=== PATIENT | female | born 1995 | race Two or more races ===

== ENCOUNTER 2019-04-01 10:31 | Emergency (ER) | payer SELFPAY ==
--- NOTE | 2019-04-01 10:39 | ER Report ---
History and Physical Time Seen By MD: 10:39 Hx. of Stated Complaint: THINKS SHE HAS A UTI. 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 Patient also reports that she had started taking Azo which was around the time that her urine change colors. Patient also admits to having a new partner with whom she does not use barrier contraception. Denies purulent vaginal discharge, bleeding however was concerned that she might possibly have a sexually transmitted infection. Patient was well-appearing at time of evaluation in no acute distress. Denies flank pains, fevers, chills. REVIEW OF SYSTEMS: Constitutional: No fever, no chills. Eyes: No discharge. ENT: No sore throat. Cardiovascular: No chest pain, no palpitations. Respiratory: No cough, no shortness of breath. Gastrointestinal: No abdominal pain, no vomiting. Genitourinary: No hematuria, + frequency, + urgency, + urine discoloration, no vaginal discharge Musculoskeletal: No back pain. Skin: No rashes. Neurological: No headache. Allergies: Coded Allergies: No Known Drug Allergies (Unverified , 04/01/19) Home Meds No Active Prescriptions or Reported Meds Constitutional Vital Sign - Last 24 Hours 04/01/19 10:35 Temp 97.7 Pulse 77 Resp 20 B/P (MAP) 110/67 Pulse Ox 94 O2 Delivery Room Air Physical Exam General Appearance: The patient is alert, has no immediate need for airway pr otection and no signs of toxicity. No acute distress Eyes: Pupils equal and round no pallor or injection. ENT, Mouth: Mucous membranes are moist. Respiratory: There are no retractions, lungs are clear to auscultation. Cardiovascular: Regular rate and rhythm. Gastrointestinal: Abdomen is soft and non tender, no masses, bowel sounds normal. Neurological: No focal neurological deficits Skin: Warm and dry, no rashes. Musculoskeletal: Neck is supple non tender. Extremities are nontender, nonswollen and have full range of motion. DIFFERENTIAL DIAGNOSIS: After history and physical exam differential diagnosis was considered for urinary tract infection, gonorrhea, chlamydia, trichomoniasis, bacterial vaginosis, ureterolithiasis Medical Decision Making Data Points Laboratory Hematology Test 04/01/19 10:34 Urine Color Yellow Urine Clarity Cloudy Urine pH 6.0 pH (4.8-9.5) Urine Specific [place] 1.026 Urine Protein 100 mg/dL (NEGATIVE) Urine Glucose (UA) Negative mg/dL (NEGATIVE) Urine Ketones Negative mg/dL (NEGATIVE) Urine Blood Small (NEGATIVE) Urine Nitrite Negative (NEGATIVE) Urine Bilirubin Negative (NEGATIVE) Urine Urobilinogen 0.2 mg/dL (0.2-1.9) Urine Leukocyte Esterase Moderate (NEGATIVE) Urine RBC 20 /HPF (0-2/HPF) Urine WBC 963 /HPF (0-5/HPF) Urine WBC Clumps Few /HPF Urine Squamous Epithelial Cells None /LPF (</=FEW) Urine Amorphous Crystals Few /HPF Urine Bacteria Negative /HPF (NONE-FEW) Urine Mucus Few /HPF (NONE-FEW) Chemistry Test 04/01/19 10:34 Urine Color Yellow Urine Clarity Cloudy Urine pH 6.0 pH (4.8-9.5) Urine Specific [place] 1.026 Urine Protein 100 mg/dL (NEGATIVE) Urine Glucose (UA) Negative mg/dL (NEGATIVE) Urine Ketones Negative mg/dL (NEGATIVE) Urine Blood Small (NEGATIVE) Urine Nitrite Negative (NEGATIVE) Urine Bilirubin Negative (NEGATIVE) Urine Urobilinogen 0.2 mg/dL (0.2-1.9) Urine Leukocyte Esterase Moderate (NEGATIVE) Urine RBC 20 /HPF (0-2/HPF) Urine WBC 963 /HPF (0-5/HPF) Urine WBC Clumps Few /HPF Urine Squamous Epithelial Cells None /LPF (</=FEW) Urine Amorphous Crystals Few /HPF Urine Bacteria Negative /HPF (NONE-FEW) Urine Mucus Few /HPF (NONE-FEW) Urinalysis Test 04/01/19 10:34 Urine Color Yellow Urine Clarity Cloudy Urine pH 6.0 pH (4.8-9.5) Urine Specific [place] 1.026 Urine Protein 100 mg/dL (NEGATIVE) Urine Glucose (UA) Negative mg/dL (NEGATIVE) Urine Ketones Negative mg/dL (NEGATIVE) Urine Blood Small (NEGATIVE) Urine Nitrite Negative (NEGATIVE) Urine Bilirubin Negative (NEGATIVE) Urine Urobilinogen 0.2 mg/dL (0.2-1.9) Urine Leukocyte Esterase Moderate (NEGATIVE) Urine RBC 20 /HPF (0-2/HPF) Urine WBC 963 /HPF (0-5/HPF) Urine WBC Clumps Few /HPF Urine Squamous Epithelial Cells None /LPF (</=FEW) Urine Amorphous Crystals Few /HPF Urine Bacteria Negative /HPF (NONE-FEW) Urine Mucus Few /HPF (NONE-FEW) ED Course/Re-evaluation ED Course Patient is a 23-year-old female here with complaints of urinary frequency, urgency, discoloration for approximately one week. Patient has been taking Azo without significant improvement but does note that her urine became discolored around the time when she started the Azo. Patient does report having a new sexual partner which also concerned her. Gonorrhea, chlamydia were sent off and are pending. Urinalysis and urine culture were completed and urinalysis was consistent with urinary tract infection, culture sent and pending. Recommend close PCP follow-up, return precautions provided. Patient placed on Keflex 5 day course twice a day dosing. Decision to Disposition Date: April 01, 2019 Decision to Disposition Time: 11:16 Depart Departure Latest Vital Signs Vital Signs Date Time Temp Pulse Resp B/P (MAP) Pulse Ox O2 Delivery O2 Flow Rate FiO2 04/01/19 10:35 97.7 77 20 110/67 94 Room Air Impression: Primary Impression: UTI (urinary tract infection) Condition: Improved Disposition: HOME OR SELF-CARE New Scripts Cephalexin 500 Mg Tab (KEFLEX 500 MG TAB) 500 Mg Tablet 500 MG PO BID for 5 Days, #10 TAB Prov: ZAIDA MOSQUEDA DO 04/01/19 Patient Instructions: Urinary Tract Infection in Women (ED) Additional Instructions: Please drink plenty of water. Your urinalysis was consistent with urinary tract infection. Urinary culture, gonorrhea, chlamydia worsen and are pending. Please take Keflex 500 mg twice daily for 5 days. Please follow up closely with your primary care provider. Please return promptly if symptoms worsen, you develop fevers, flank pain, difficulty urinating. ZAIDA MOSQUEDA DO April 01, 2019 10:39
[2019-04-01 11:00] VITALS: BP 111/74
[2019-04-01] MEDS ORDERED: CEPH500T7 PO (11:18)
== END 2019-04-01 11:22 | disposition home or self-care (01) ==
LOC: ER 10:42
DX: N39.0 Urinary tract infection, site not specified (principal)
CPT/HCPCS: 81001; 87088; 87186; 87491; 87591; 99282